=== PATIENT | female | born 1970 | race Two or more races ===

== ENCOUNTER → 2022-11-08 09:49 | Outpatient (BNVA) | payer OTHER, SELFPAY | PROVIDERS: PCP Internal Medicine; Visit Provider Student in an Organized Health Care Education/Training Program | DX: M79.7 Fibromyalgia (principal) | CPT/HCPCS: 99202 ==

== ENCOUNTER 2024-11-08 08:40 | Outpatient (AMB) | payer OTHER, SELFPAY ==
--- NOTE | 2024-11-08 08:41 | MHC.OFFVIS ---
Vital Signs 11/08/24 08:45 Height 5 ft 4 in Weight 199 lb 4.766 oz BMI 34.2 BP 134/80 Blood Pressure Location Lt brachial Position Sitting Pulse 89 Pulse Source Pulse Oximeter Pulse Oximetry (%) 98 Oxygen Delivery Method Room Air Intake Visit Reasons: FMS Intake Note: Patient presents for FMS. Allergies No Known Allergies Allergy (Verified 11/08/24 08:44) Medication List - Last Reconciled 11/08/24 by Eda Wallace MD acetaminophen (Tylenol Extra Strength) 500 mg PO Q6H PRN amlodipine 2.5 mg PO DAILY calcium carbonate-vitamin D3 500 mg-10 mcg (400 unit) (Calcium 500 + D) 1 tab PO DAILY cetirizine (All Day Allergy (cetirizine)) 10 mg PO DAILY PRN cyanocobalamin (vitamin B-12) 1,000 mcg PO DAILY diphenhydramine HCl (Benadryl) 25 mg PO TID PRN docusate sodium 100 mg PO BID ergocalciferol (vitamin D2) 1,250 mcg PO QWEEK fluticasone propionate 50 mcg/actuation (Allergy Relief (fluticasone)) 1 spray intranasal BID folic acid 1 mg PO DAILY galcanezumab-gnlm (Emgality Pen) mg subcut .EVERY 3O DAYS levothyroxine 25 mcg PO DAILY lubiprostone (Amitiza) 24 mcg PO BID metoclopramide HCl (Reglan) 5 mg PO TID montelukast (Singulair) 10 mg PO DAILY naratriptan 1 mg PO ONCE PRN omeprazole 40 mg PO DAILY polyethylene glycol 3350 (Miralax) 17 grams PO DAILY topiramate 100 mg PO BID trazodone 100 mg PO BEDTIME venlafaxine 75 mg PO DAILY venlafaxine ER 150 mg PO DAILY HPI Comments Details: Patient is a 54-year-old female with hypertension, hypothyroidism, depression/anxiety, GERD, KAITLYNN not on CPAP who is here today for follow up of fibromyalgia and bilateral knee OA Interval History: Patient last seen 11/08/[address] Galvez. At that time she was complaining of worsening fatigue, diffuse body pain and reduced energy. Exam at that time was consistent with fibromyalgia and recommendations were to do increased exercise and stretching. Today, Patient continues to complain of whole body pain and worsening fatigue Stopped gabapentin because she did not think it was helping Rheumatologic History: Diagnosed with fibromyalgia 10/2022 based on positive tender points, no active evidence of synovitis Bilateral knee OA: has tried steroid injections, gel injections without much relied Current Rheumatology Medication(s): Gabapentin 300mg bid (no longer taking) PFSH Medical History Acid reflux ADHD Allergic rhinitis Anxiety Constipation Depigmentation of skin Depression Hypothyroidism Iron deficiency anemia Lumbar spondylosis Migraines Myofascial pain syndrome of lumbar spine Surgical History H/O abdominoplasty History of carpal tunnel release Hx of gastric bypass Family History Mother Heart disease Diabetes Arthritis Father Heart disease Social History Household Members: None Alcohol intake: never Patient Tobacco Use Status: Never used Tobacco Current occupational status: unemployed Review of Systems Const Details: Review of Systems Constitutional: Denies fever, chills, weight loss ENT: Denies vision changes, eye pain or eye redness, dental caries, dry mouth GI: Denies nausea, vomiting, diarrhea, abdominal pain, change in BM Pulm: Denies SOB, DORANTES, hemoptysis, wheezing Cards: Denies chest pain, palpitations Skin: Denies Raynaud's, rash, nail changes, photosensitivity, FINGERNAIL TECHNICIAN: Denies headaches, weakness, paresthesias, recurrent falls MSK: as per HPI All other systems reviewed and are unremarkable except noted above Physical Exam Vital Signs: Last Vital Signs Pulse 89 11/08/24 08:45 BP 134/80 11/08/24 08:45 Pulse Ox 98 11/08/24 08:45 Oxygen Delivery Method Room Air 11/08/24 08:45 BMI result Body Mass Index 34.2 Vital signs reviewed Physical Examination CONSTITUITIONAL Patient alert and cooperative. Well appearing and in no apparent painful distress HEENT Conjunctiva and sclera clear. ?Pupils equal round and reactive to light. ?No lymphadenopathy. ? CHEST/RESPIRATORY SYSTEM Normal respiratory effort and able to speak in complete sentences. ?Clear to auscultation bilaterally. ?No crackles, rales, rhonchi, wheezes heard. CARDIAC SYSTEM Regular rate and rhythm. ?S1 and S2 heard no murmurs. ?Radial pulses intact bilaterally MSK Hands: ?Good emergency response coordinator strength bilaterally. No deformities noted. ?No synovitis noted to the MCPs, PIPs or DIPs. ?No tenderness to palpation of these joints. Wrists: ?Full range of motion at the wrists without pain. ?No tenderness to palpation or synovitis noted to the wrists. Elbows: Full range of motion without pain. No tenderness, weakness, swelling, increased warmth or erythema. Shoulders: Full range of motion without pain. No tenderness, weakness, swelling, increased warmth or erythema. Hips: Full range of motion without pain. Hip bursa: No tenderness to palpation Knees: ?Full range of motion. ?No tenderness, swelling, increased warmth or erythema.?No effusion or crepitations Ankles: Full range of motion. ?No tenderness, swelling, increased warmth or erythema.? Feet: ?Negative squeeze test. ?No tenderness to palpation or swelling of the MTPs. Tender points:?No tenderness to palpation of the bilateral trapezius, supraspinatus, greater trochanters, anterior costochondral junctions, bilateral gluteal areas, bilateral suboccipital muscle insertions SKIN Skin intact without rashes. Assessment & Plan Assessment & Plan (1) Fibromyalgia, primary: Code(s): M79.7 - Fibromyalgia Category: Medical Plan: #Fibromyalgia Patient is a 54-year-old female with fibromyalgia presents today for follow up. I discussed the treatment options for fibromyalgia including gabapentin, pregabalin, amitriptyline, muscle relaxants such as Flexeril Patient previously on gabapentin 300 mg twice a day. I discussed possibly increasing the dose of gabapentin since then maximum dose is usually 7512-4126 per day however patient would like to try pregabalin. We will start with pregabalin and see if this is efficacious for her. Plan - Stop gabapentin - Start pregabalin: 75 mg p.o. b.i.d. for 2 weeks then increase to 150 mg p.o. b.i.d. if tolerated - Consider adding amitriptyline and/or Flexeril in the future - Discussed stretches, exercise and good sleep hygiene - Labs today: CBC, CMP, ESR, CRP, RF and CCP - RTC 6 months (2) Bilateral primary osteoarthritis of knee: Code(s): M17.0 - Bilateral primary osteoarthritis of knee Category: Medical Plan: #Bilateral Knee OA Patient with bilateral knee OA has tried gel injections, steroid injections but this have not been helpful. Has not tried topical diclofenac we will prescribe this to apply 4 times a day Plan - Topical diclofenac 4 times a day Plan I spent 30 minutes reviewing the record and labs, taking a history, examining the patient, discussing the treatment plan and documenting in the medical record Orders: Orders Complete Blood Count Auto Diff Today M79.7 - Fibromyalgia C Reactive Protein Today M79.7 - Fibromyalgia Erythrocyte Sedimentation Rate Today M79.7 - Fibromyalgia Rheumatoid Factor Today M79.7 - Fibromyalgia Comprehensive Met. Panel Today M79.7 - Fibromyalgia Cyclic Citrullinated Peptide Today M79.7 - Fibromyalgia Medications: New pregabalin 150 mg (2 x 75 mg) PO BID 180 caps 5RF M79.7 - Fibromyalgia diclofenac sodium 1% (Arthritis Pain (diclofenac)) apply to bilateral knees 4 times a day 4 grams topical QID 100 grams 5RF M17.0 - Bilateral primary osteoarthritis of knee Coding Level of Care Code Est Pt Level 4 (40064) Diagnoses Fibromyalgia, primary M79.7 Bilateral primary osteoarthritis of knee M17.0
[2024-11-08 08:45] VITALS: BP 134/80; PULSE 89; O2SAT 98; BMI 34.2
--- OUTSIDE RECORDS SUMMARY | 2024-11-08 08:53 | XMS_ITS | Encounter Summary ---
Author Organization [facility] Address [address] [place] [address] Care Team Providers Care Systems Applications Programming Lead Name Role Phone Gini Johnson MD Primary Care Provider [phone] Reason for Referral * Rehabilitation - Outpatient (Routine) - Authorized Specialty Diagnoses / Procedures Referred By Allison chávez Referred To Contact Physical Therapy Diagnoses Chronic pain of both shoulders Regan Underwood PA [address] [place] [address] Referral ID Status Reason Start Date Expiration Date Visits Requested Visits Authorized [id number] Authorized Consult and Treat 10/23/2024 10/23/2025 21 21 Reason for Visit * Reason Comments Pain Follow-up Pain Encounter Details Date Type Department Care Team ([facility] st Contact Info) Description 10/23/2024 9:30 AM EST Office Visit Orthopedics - [address] [phone] Regan Underwood PA [address] [place] [phone] Chronic pain of both shoulders (Primary Dx) Social History Tobacco Use Types Packs/Day Years Used Date Smoking Tobacco: Never Smokeless Tobacco: Never Alcohol Use Standard Drinks/Week Comments No 0 (1 standard drink = 0.6 oz pur e alcohol) Sex and Gender Information Value Date Recorded Sex Assigned at Female 07/15/2021 9:13 AM EDT Gender Identity Female 07/15/2021 9:13 AM EDT Sexual Orientation Straight 07/15/2021 9: 13 AM EDT Job Start Date Occupation Industry Not on file Not on file Not on file documented as of this encounter Last Filed Vital Signs Vital Sign Reading Time Taken Comments Blood Pressure - - Pulse - - Temperature - - Respiratory Rate 16 10/23/2024 9:09 AM EST Oxygen Saturation - - Inhaled Oxygen Concentration - - Weight 92.5 kg (204 lb) 10/23/2024 9:09 AM EST Height 162.6 cm (5' 4 ) 10/23/2024 9:09 AM EST Body Mass Index 35.02 10/23/2024 9:09 AM EST documented in this encounter Plan of Treatment Upcoming Encounters Date Type Department Care Team (Late st Contact Info) Description 11/13/2024 11:15 AM EST [facility]ointment [facility] [address] [place] [phone] 11/13/2024 3:00 PM EST Evaluation [facility] [address] [facility] [address] [place] [phone] Sean Cleary, PT [address] [place] [address] 11/20/2024 9:30 AM EST Office Visit Orthopedics [place] [id number] [place] [phone] Regan Underwood PA [address] [place] [address] 11/27/2024 3:30 PM EST Office Visit Orthopedic Surgery [facility] [address] [facility] [address] [place] [phone] Marivel Sandy NP 175 [facility] [address] [place] [address] 12/11/2024 2:00 PM EST Appointment [facility] Endoscopy [address] [place] [phone] Boni HanselDO [address] [phone] 12/26/2024 9:00 AM EDT Appointment [facility] Xray [address] [place] [phone] 02/03/2025 8:30 AM EDT Office Visit Internal Medicine - [place] [address] [phone] Gini Johnson MD [address] [phone] Scheduled Orders Name Type Priority Associated Diagnoses Orde r Schedule XR Shoulder 2+ Views bilat Imaging Routine Chronic pain of both shoulders Ordered: 10/23/2024 Scheduled Referrals Name Type Priority Associated Diagnoses Order Schedule Ambulatory referral to Physical Therapy and Athletic Training Outpatient Referral Routine Chronic pain of both shoulders 1 Occurrences starting 10/23/2024 until 10/23/2025 documented as of this encounter Visit Diagnoses Diagnosis Chronic pain of both shoulders- Primary documented in this encounter Historical Medications * This list may reflect changes made after this encounter. Medication Sig Dispensed Refills Start Date End Date metoclopramide (REGLAN) 5 mg tablet Take 1 tablet (5 mg total) by mouth 3 (three) times a day before meals. 10/08/2024 added in this encounter Care Teams Systems Applications Programming Lead Relationship Specialty Start Date End Date Gini Johnson MD [address] [phone] PCP - General Internal Medicine 02/04/19 documented as of this encounter
--- OUTSIDE RECORDS SUMMARY | 2024-11-08 08:53 | XMS_ITS | Clinical Summary ---
Author Organization Patient Business [facility] Address [address] [place] [address] Care Team Providers Care Assisted Living Administrator Name Role Phone Gini Johnson MD Primary Care Provider [phone] Allergies No known active allergies Medications Medication Sig Dispensed Refills Start Date End Date Status acetaminophen (TYLENOL) 500 mg tablet Take 1 tablet (500 mg total) by mouth every 6 (six) hours if needed for moderate pain or mild pain. 05/02/2024 Active lactulose (CHRONULAC) solution Take 15 mL (10 g total) by mouth 2 (two) times a day if needed. 03/12/2024 Active omeprazole (PriLOSEC) [address] capsule Take 1 Capsule by mouth 2 times daily (before meals). 03/12/2024 Active polyethylene glycol (Miralax) 17 gram/dose oral powder One capful (17g) twice daily as needed for constipation. 03/12/2024 Active topiramate (TOPAMAX) 100 mg tablet Take 1 tablet (100 mg total) by mouth 2 (two) times a day. 02/12/2024 Active busPIRone (BUSPAR) 10 mg tablet Take 1 tablet (10 mg total) by mouth 2 (two) times a day if needed. 11/23/2023 Active amLODIPine (NORVASC) 2.5 mg tablet Take 1 tablet (2.5 mg total) by mouth 1 (one) time each day. 12/19/2023 Active ergocalciferol (VITAMIN D-2) 1,250 mcg (50,000 unit) capsule Take 1 Capsule by mouth once a week. 12/19/2023 Active gabapentin (NEURONTIN) 300 mg capsule Take 1 capsule (300 mg total) by mouth 2 (two) times a day. 12/06/2023 Active sodium hyaluronate, viscosup, 10 mg/mL solution injection Inject 20 mg into the articular space once a week for 21 days. Inject one syringe to each knee once weekly for 3 weeks 05/16/2023 Active traZODone (DESYREL) 100 mg tablet Take 1 tablet (100 mg total) by mouth at bedtime. 12/02/2022 Active galcanezumab-gnlm (Emgality Pen) 120 mg/mL injection pen every 30 days. 06/12/2020 A ctive cetirizine (ZyrTEC) 10 mg tablet TAKE 1 TABLET BY MOUTH EVERY DAY 90 tablet 1 08/20/2024 Active Additional Information Patient not taking.Reported on 10/23/2024 venlafaxine XR (EFFEXOR-XR) 150 mg 24 hr capsule Take 1 capsule (150 mg total) by mouth 1 (one) time each day. With 75 MG for a daily total of 225 MG daily. 11/09/2018 Active venlafaxine XR (EFFEXOR-XR) 75 mg 24 hr capsule Take 1 capsule (75 mg total) by mouth 1 (one) time each day. With 150 MG for a daily total of 225 MG daily. Active ZOLMitriptan (ZOMIG) 2.5 mg tablet Take 1 tablet (2.5 mg total) by mouth 1 (one) time each day if needed for migraine. Active levothyroxine (SYNTHROID, LEVOTHROID) 25 mcg tablet Take 1 tablet (25 mcg total) by mouth 1 (one) time each day. 90 tablet 3 08/27/2024 Active cyanocobalamin (Vitamin B-12) 1,000 mcg tablet Take 1 tablet (1,000 mcg total) by mouth 1 (one) time each day. 90 tablet 3 09/16/2024 Active metoclopramide (REGLAN) 5 mg tablet Take 1 tablet (5 mg total) by mouth 3 (three) times a day before meals. 10/08/2024 Active Active Problems Problem Noted Date Diagnosed Date Anxiety 07/11/2024 Class 2 obesity 12/29/2023 Carpal tunnel syndrome of right wrist 08/23/2023 Insomnia 01/31/2023 Primary hypertension 01/31/2023 Lower abdominal pain 06/10/2021 Overview (07/11/2024): Last Assessment & Plan: Discussed common causes of abdominal discomfort. Ultrasound from 04/2020 reviewed and uterus normal size with two small 1.5cm fibroids. Discussed discomfort is more likely related to constipation. Recommend f/u with GI, which the patient already has scheduled. Lumbar spondylosis 09/01/2020 ADHD (attention deficit hyperactivity disorder) 07/06/2018 Anemia, iron deficiency 03/15/2018 Acid reflux 03/13/2018 Constipation 03/13/2018 Depression 02/07/2018 Myofascial pain syndrome of lumbar spine 017 Migraine, unspecified, not i ntractable, without status migrainosus 06/23/2017 Allergic rhinitis 03/22/2017 Hypothyroidism 12/30/2016 Depigmentation of skin 11/24/2016 Encounters Date Type Department Care Team Description 10/23/2024 9:30 AM EST Office Visit Orthopedics - [address] [phone] Regan Underwood PA Chronic pain of both shoulders (Primary Dx) 09/09/2024 Telephone Gastroenterology - [place] 175 [facility] [address] [phone] Christa Roblero PA 09/09/2024 Telephone Gastroenterology [facility] 175 [place] [address] [phone] Christa Roblero PA 08/27/2024 2:45 PM EST Office Visit Endocrinology - [address] [phone] Penny Mata PA Hypothyroidism, unspecified type (Primary Dx) from Last 3 Months Immunizations Name Administration Dates Next Due Influenza trivalent, with pr eservative (Fluzone; Afluria) 6mo and older 06/02/2020 Influenza, Unspecified 07/25/2022 Pfizer SARS-CoV-2 COVID-19, mRNA, LNP-S, preservative free 02/11/2022 Tdap Tetanus diptheria acell ular pertussis (Boostrix; Adacel) 7yo and older 01/22/2016 Surgical History Surgery Date Site/Laterality Comments GASTRIC BYPASS 2004 PROCEDURE: [place] GASTRIC RSTCV W/BYP W/SM INT RCNSTJ LIMIT ABSRPJ BELT ABDOMINOPLASTY PROCEDURE: HISTORICAL TUMMY TUCK CARPAL TUNNEL RELEASE 2002 Left PROCEDURE: [place] NEUROPLASTY &/TRANSPOS MEDIAN NRV CARPAL TUNNE Medical History Medical History Date Comments Anxiety DX:Anxiety Acid reflux 03/13/2018 DX:Acid reflux ADHD (attention deficit hype ractivity disorder) 07/06/2018 DX:ADHD (attention deficit hyperactivity disorder) Allergic rhinitis 03/22/2017 DX:Allergic rh initis Anemia, iron deficiency 03/15/2018 DX:Anemi a, iron deficiency Constipation 03/13/2018 DX:Constipation Depigmentation of skin 11/24/2016 DX:Depigm entation of skin Depression 02/07/2018 DX:Depression Hypothyroidism 12/30/2016 DX:Hypothyroidis m Lower back pain 07/11/2017 DX:Lower back pa in Migraine, unspecified, not intractable, without status migrainosus 06/23/2017 DX:Migraine, unspecified, no t intractable, without status migrainosus S/P bariatric surgery 06/23/2017 DX:S/P bar iatric surgery Asthma DX:Asthma Essential hypertension DX:Essent ial hypertension Family History Medical History Relation Name Comments Other: heart problems Brother Arthritis Mother Other: congestive heart failure Mother Hyperlipidemia Sister 1 Depression Sister 2 Breast cancer Neg Hx Colon cancer Neg Hx Relation Name Status Comments Brother Father (Age 56) Mother Sister 1 Sister 2 Social History Tobacco Use Types Packs/Day Years [...] file Not on file Not on file Obstetrics History Last Filed Vital Signs Vital Sign Reading Time Taken Comments Blood Pressure 102/72 08/27/2024 2:53 PM EST C Pulse 88 08/27/2024 2:53 PM EST Temperature 36.5 ??C (97.7 ??F) 08/27/2024 2:53 PM ES T Respiratory Rate 16 10/23/2024 9:09 AM EST Oxygen Saturation 99% 08/27/2024 2:53 PM EST Inhaled Oxygen Concentration - - Weight 92.5 kg (204 lb) 10/23/2024 9:09 AM EST Height 162.6 cm (5' 4 ) 10/23/2024 9:09 AM EST Body Mass Index 35.02 10/23/2024 9:09 AM EST Plan of Treatment Upcoming Encounters Date Type Department Care Team (Late st Contact Info) Description 11/13/2024 11:15 AM EST Appointment [facility] [address] [place] [phone] 11/13/2024 3:00 PM EST Evaluation [facility] Rehabilitation [facility] [address] [phone] Sean Cleary, PT 175 [place] [address] 11/20/2024 9:30 AM EST Office Visit Orthopedics [address] [phone] Regan Underwood PA [address] [place] [address] 11/27/2024 3:30 PM EST Office Visit Orthopedic Surgery - [place] [address] [phone] Marivel Sandy NP [address] [address] 12/11/2024 2:00 PM EST Appointment [facility] Endoscopy [address] [place] [phone] Hansel Plata DO [address] [address] 12/26/2024 9:00 AM EDT Appointment [facility] Xray [address] [place] [address] 02/03/2025 8:30 AM EDT Office Visit Internal Medicine - [place] [address] [phone] Gini Johnson MD [address] [phone] Health Maintenance Due Date Last Done Comments Hepatitis B Vaccines (1 of 3 - 19+ 3-dose series) 1991 Social Influencers of Health Screening 04/22/2020 Breast Cancer Screening 07/16/2020 07/16/2018 Zoster Vaccines (1 of 2) 2022 Cervical Cancer Screening: HPV 11/13/2024 11/13/2019 Depression Screening 05/28/2025 05/28/2024 Hypertension/CHF/CAD Annual BMP Blood Test 05/28/2025 05/28/2024, 05/28/2024 DTaP,Tdap,and Td Vaccines (2 - Td or Tdap) 01/21/2026 01/22/2016 Cholesterol Screening (Lipid Panel) 05/15/2028 05/15/2023 Colorectal Cancer Screening: Colonoscopy 03/05/2029 03/05/2019 HIV Screening Completed 11/13/2019 Hepatitis C Screening Completed 11/13/2019 COVID-19 Vaccine Completed 07/05/2024, , 02/11/2022, Additional history exists Influenza Vaccine Completed 07/05/2024, , 07/25/2022, Additional history exists HIB Vaccines Aged Out No longer eligi ble based on patient's age to complete this topic HPV Vaccines Aged Out No longer eligi ble based on patient's age to complete this topic Hepatitis A Vaccines Aged Out No long er eligible based on patient's age to complete this topic IPV Vaccines Aged Out No longer eligi ble based on patient's age to complete this topic MMR Vaccines Aged Out No longer eligi ble based on patient's age to complete this topic Meningococcal ACWY Vaccine Aged Out N o longer eligible based on patient's age to complete this topic Pneumococcal Vaccine: Pediatrics (0 to 5 Years) and At-Risk Patients (6 to 64 Years) Aged Out No longer eligible based on patient's age to complete this topic RSV Immunization Patients Under 20 months Aged Out No longer eligible based on patient's age to complete this topic Varicella Vaccines Aged Out No longer eligible based on patient's age to complete this topic Procedures Procedure Name Priority Date/Time Associated Diagnosis Comments THYROID STIMULATING HORMONE WITH REFLEX TO FREE T4 AND FREE T3 Routine 09/19/2024 9:26 AM EST Hypothyroidism, unspecified type EXTERNAL COLOGUARD (FIT-DNA) REPORT 08/28/2024 DEPRESSION SCREENING Routine 05/28/2024 ANNUAL BMP BLOOD TEST Routine 05/28/2024 LIPID PANEL Routine 05/15/2023 HPV Routine 11/13/2019 HEPATITIS C SCREENING Routine 11/13/2019 HIV SCREENING Routine 11/13/2019 COLONOSCOPY Routine 03/05/2019 ALLEN SCREENING DIGITAL Routine 07/16/2018 10:48 AM EDT Encounter for screening mammogram for malignant neoplasm of breast from Last 3 Months or Most Recently Relevant to Health Maintenance Results * Thyroid stimulating hormone with reflex to free t4 and free t3 (09/19/2024 9:26 AM EST) TSH 1.88 0.40 - 4.00 mcIU/mL LAB CHEMISTRY METHOD 09/19/2024 10:34 AM EST [facility] Blood Venous blood specimen / Unknown Venipuncture / Unknown 09/19/2024 9:26 AM EST 09/19/2024 9:26 AM EST Penny RUELAS LAB BLOOD ORDERABLE S [facility] [address] [place] [address], * External Cologuard (FIT-DNA) Report (08/28/2024) Provider Onbase LAB BODY FLUIDS AND STOOLS ORDERABLES * Annual BMP Blood Test (05/28/2024) [facility] Annual BMP Blood Test Abstracted Historical Provider MD PENALOZA [facility] Depression Screening (05/28/2024) [facility] Depression Screening Abstracted Historical Provider MD PENALOZA [employer] E (ABNORMAL) Lipid panel (05/15/2023) [facility] LDL/HDL Ratio 3 0 - 4 Triglycerides 91 0 - 150 mg/dL Cholesterol 195 0 - 200 mg/dL HDL 61 40 mg/dL LDL Cholesterol 116(A) 0 - 100 mg/dL Blood Venous blood specimen / Unknown Historical Provider LAB BLOOD ORDERAB LES * Cervical Cancer Screening: HPV (11/13/2019) [facility] Cervical Cancer Screening: HPV Abstracted, Negative Historical Provider MD PENALOZA [facility] * HIV Screening (11/13/2019) [facility] HIV Screening Abstracted [facility] Provider MD TREMAINE BAILEY * Hepatitis C Screening (11/13/2019) [facility] Hepatitis C Screening Abstracted Historical Provider MD TREMAINE BAILEY E * Colonoscopy (03/05/2019) Colonoscopy Abstracted, Unknown Anatomical Region Laterality Modality Other Historical Provider MD TREMAINE BAILEY E * [facility] SCREENING DIGITAL (07/16/2018 10:48 AM EDT) Anatomical Region Laterality Modality Mammography 07/12/2018 10:5 1 AM EDT Narrative 07/16/2018 10:48 AM EDT [facility] Diagnostic Imaging Department [address] [place] [address] Patient: ??PATSY,ALLIE ?/Age/Sex: 1970 - 48 - F Unit#: ??[id number] ? Location/Status: ??SPDIMAM/REG CLI ? Mnemonic/Ordering Site: ??DIGSC/SPMAM Ordering Physician: ??MADINA SOLORIO MD [facility] Screening Digital - 07/14/18 7654 INDICATION: Screening. COMPARISON: Baseline mammogram TECHNIQUE: Routine views of both breasts were obtained using full-field direct digital mammography. Bilateral tomosynthesis was performed in MLO projection. Computer Aided Detection was utilized. BREAST PARENCHYMAL COMPOSITION: The breast parenchyma is composed of scattered fibroglandular densities. (Category b density ) . FINDINGS: ??There is no suspicious finding within either breast. Benign- appearing bilateral axillary lymph nodes. Few scattered benign-appearing microcalcifications in both breasts. IMPRESSION: 1. No mammographic evidence of malignancy. 2. Annual screening mammography is recommended . OVERALL FINAL ASSESSMENT: BI-RADS Assessment Category 2: Benign. PQRI CPT II 3342 F A negative mammogram in the presence of clinically suspicious palpable abnormality does not preclude the possibility of malignancy or alter the indications for biopsy. Note: Patient information entered into a reminder system with a target due date for the next mammogram: ??CPT II 7025F G0202/21213 [id number] Dictating Physician: ??SNEHAL PEREZ MD Electronically Signed by: ??SNEHAL PEREZ MD Dic Date/Time: ??07/16/181046 Sign date/Time: ??07/16/181047 Procedure Note Snehal Perez MD - 09/27/2022 [facility] Diagnostic Imaging Department [address] [place] [address] Patient: ALLIE MATA /Age/Sex: 1970 - 48 - F Unit#: [id number] Location/Status: [facility] Mnemonic/Ordering Site: [facility] Ordering Physician: MADINA SOLORIO MD [facility] Screening Digital - 07/14/18954 INDICATION: Screening. COMPARISON: Baseline mammogram TECHNIQUE: Routine views of both breasts were obtained using full-fielddirect digital mammography. Bilateral tomosynthesis was performed in MLOprojection. Computer Aided Detection was utilized. BREAST PARENCHYMAL COMPOSITION: The breast parenchyma is composed ofscattered fibroglandular densities. (Category b density ) . FINDINGS: There is no suspicious finding within either breast. Benign- appearing bilateral axillary lymph nodes. Few scattered benign-appearing microcalcifications in both breasts. IMPRESSION: 1. No mammographic evidence of malignancy. 2. Annual screening mammography is recommended . OVERALL FINAL ASSESSMENT: BI-RADS Assessment Category 2: Benign. PQRI CPT II 3342 F A negative mammogram in the presence of clinically suspicious palpable abnormality does not preclude the possibility of malignancy or alter the indications for biopsy. Note: Patient information entered into a reminder system with a target duedate for the next mammogram: CPT II 7025F G0202/69053 +[id number] Dictating Physician: SNEHAL PEREZ MD Electronically Signed by: SNEHAL PEREZ MD Dic Date/Time: 07/16/181046 Sign date/Time: 07/16/18 104 Madina Solorio MD IMG BI PROCEDURES from Last 3 Months or Most Recently Relevant to Health Maintenance Care Teams Assisted Living Administrator Relationship Specialty Start Date End Date Gini Johnson MD 175 [facility] 200 [place] [phone] PCP - General Internal Medicine 02/04/19
== END 2024-11-08 09:16 | disposition home or self-care (01) ==
PROVIDERS: PCP Internal Medicine; Visit Provider Student in an Organized Health Care Education/Training Program
DX: M79.7 Fibromyalgia (principal); M17.0 Bilateral primary osteoarthritis of knee
CPT/HCPCS: 99214

== ENCOUNTER → 2024-11-08 08:40 | Outpatient (BNVA) | payer OTHER, SELFPAY | PROVIDERS: PCP Internal Medicine; Visit Provider Student in an Organized Health Care Education/Training Program | DX: M17.0 Bilateral primary osteoarthritis of knee (principal); M79.7 Fibromyalgia | CPT/HCPCS: 99212 ==

== ENCOUNTER 2024-11-08 09:20 | Outpatient (REF) | payer OTHER, SELFPAY ==
--- OUTSIDE RECORDS SUMMARY | 2024-11-08 09:49 | XMS_ITS | Encounter Summary ---
Author Organization [employer] Address [address] [place] [address] Care Team Providers Care Geomorphology Teacher Name Role Phone Gini Johnson MD Primary Care Provider [phone] Reason for Referral * Rehabilitation - Outpatient (Routine) - Authorized Specialty Diagnoses / Procedures Referred By Allison chávez Referred To Contact Physical Therapy Diagnoses Chronic pain of both shoulders Regan Underwood PA [address] [place] [address] Referral ID Status Reason Start Date Expiration Date Visits Requested Visits Authorized [id number] Authorized Consult and Treat 10/23/2024 10/23/2025 21 21 Reason for Visit * Reason Comments Pain Follow-up Pain Encounter Details Date Type Department Care Team ([facility] st Contact Info) Description 10/23/2024 9:30 AM EST Office Visit Orthopedics - [address] [phone] Regan Underwood PA [address] [place] [phone] Chronic pain of both shoulders (Primary Dx) [...] AM EST Appointment [facility] [address] [place] [phone] 11/13/2024 3:00 PM EST Evaluation [facility] 175 [facility] [address] [place] [phone] Sean Cleary, PT 175 [place] [address] 11/20/2024 9:30 AM EST Office Visit Orthopedics [place] [phone] [place] [phone] Regan Underwood PA [address] [place] [address] 11/27/2024 3:30 PM EST Office Visit Orthopedic Surgery [facility] 250 175 [facility] [address] [place] [phone] Marivel Sandy NP 175 [facility] 250 [place] [address] 12/11/2024 2:00 PM EST Appointment [facility] Endoscopy [address] [place] [phone] Boni HanselDO [address] [phone] 12/26/2024 9:00 AM EDT Appointment [facility] Xray [address] [place] [phone] 02/03/2025 8:30 AM EDT Office Visit Internal Medicine - [place] [address] [phone] Gini Johnson MD [address] [phone] Scheduled Orders Name Type Priority [...] 10/08/2024 added in this encounter Care Teams Geomorphology Teacher Relationship Specialty Start Date End Date Gini Johnson MD [address] [phone] PCP - General Internal Medicine 02/04/19 documented as of this encounter
--- OUTSIDE RECORDS SUMMARY | 2024-11-08 09:50 | XMS_ITS | Clinical Summary ---
Author Organization Patient Business [facility] Address [address] [place] [address] Care Team Providers Care Print Traffic Manager Name Role Phone Gini Johnson MD Primary Care Provider [phone] Allergies No known active allergies Medications Medication [...] 9:30 AM EST Office Visit Orthopedics - [address] [phone] Regan Underwood PA Chronic pain of both shoulders (Primary Dx) 09/09/2024 Telephone Gastroenterology - [place] 175 [facility] [address] [phone] Christa Roblero PA 09/09/2024 Telephone Gastroenterology [facility] [address] [place] [address] [phone] Christa Roblero PA 08/27/2024 2:45 PM EST Office Visit Endocrinology - [address] [phone] Penny Mata PA Hypothyroidism, unspecified type (Primary Dx) from Last 3 Months Immunizations Name Administration Dates Next Due Influenza trivalent, with pr eservative (Fluzone; Afluria) 6mo and older 06/02/2020 Influenza, Unspecified 07/25/2022 Pfizer SARS-CoV-2 COVID-19, mRNA, LNP-S, preservative free 02/11/2022 Tdap Tetanus diptheria acell ular pertussis (Boostrix; Adacel) 7yo and older 01/22/2016 Surgical History Surgery Date Site/Laterality Comments GASTRIC BYPASS 2004 PROCEDURE: SD GASTRIC RSTCV W/BYP W/SM INT RCNSTJ LIMIT ABSRPJ BELT ABDOMINOPLASTY PROCEDURE: HISTORICAL TUMMY TUCK CARPAL TUNNEL RELEASE 2002 Left PROCEDURE: SD NEUROPLASTY &/TRANSPOS MEDIAN NRV CARPAL TUNNE Medical [...] AM EST Appointment [facility] [address] [place] [phone] 11/13/2024 3:[address] [facility] [address] [phone] Sean Cleary, PT 175 [place] [address] 11/20/2024 9:30 AM EST Office Visit Orthopedics [address] [phone] Regan Underwood PA [address] [place] [address] 11/27/2024 3:30 PM EST Office Visit Orthopedic Surgery - [place] [phone] [phone] Marivel Sandy NP [address] [address] 12/11/2024 2:[address] [facility] Endoscopy [address] [place] [phone] Hansel Plata DO [address] [address] 12/26/2024 9:[address] [facility] Xray [address] [place] [address] 02/03/2025 8:30 AM EDT Office Visit Internal Medicine - [place] [address] [phone] Gini Johnson MD [address] [phone] Health Maintenance Due Date Last [...] LAB CHEMISTRY METHOD 09/19/2024 10:34 AM EST [facility] Blood Venous blood specimen / Unknown Venipuncture / Unknown 09/19/2024 9:26 AM EST 09/19/2024 9:26 AM EST Penny RUELAS LAB BLOOD ORDERABLE S [facility] [address] [place] [address], * External Cologuard (FIT-DNA) Report (08/28/2024) Provider Onbase LAB BODY FLUIDS AND STOOLS ORDERABLES * Annual BMP Blood Test (05/28/2024) [facility] Annual BMP Blood Test Abstracted Historical Provider MD [facility]NALOAZ [employer] [facility] Depression Screening (05/28/2024) [facility] Depression Screening Abstracted Historical Provider MD PENALOZA [employer] E (ABNORMAL) Lipid panel (05/15/2023) [facility] LDL/HDL Ratio 3 0 - 4 Triglycerides 91 0 - 150 mg/dL Cholesterol 195 0 - 200 mg/dL HDL 61 40 mg/dL LDL Cholesterol 116(A) 0 - 100 mg/dL Blood Venous blood specimen / Unknown Historical Provider LAB BLOOD ORDERAB LES * Cervical Cancer Screening: HPV (11/13/2019) [facility] Cervical Cancer Screening: HPV Abstracted, Negative Historical Provider [facility] * HIV Screening (11/13/2019) [facility] HIV Screening Abstracted [facility] Provider MD TREMAINE BAILEY * Hepatitis C Screening (11/13/2019) [facility] Hepatitis C Screening Abstracted Historical Provider MD TREMAINE BAILEY E * Colonoscopy (03/05/2019) Colonoscopy Abstracted, Unknown Anatomical Region Laterality Modality Other Historical Provider MD TREMAINE BAILEY E * [facility] SCREENING DIGITAL (07/16/2018 10:48 AM EDT) Anatomical Region Laterality Modality Mammography 07/12/2018 10:5 1 AM EDT Narrative 07/16/2018 10:48 AM EDT [facility] Diagnostic Imaging Department [address] [place] [phone] Patient: ??PATSY,ALLIE ?/Age/Sex: 1970 - 48 - F Unit#: ??[id number] ? Location/Status: ??SPDIMAM/REG CLI ? Mnemonic/Ordering Site: ??DIGSC/SPMAM Ordering Physician: ??MADINA SOLORIO MD [facility] Screening Digital - 07/14/18 2769 INDICATION: Screening. COMPARISON: Baseline mammogram TECHNIQUE: Routine [...] for the next mammogram: ??CPT II 7025F [id number] Dictating Physician: ??SNEHAL PEREZ MD Electronically Signed by: ??SNEHAL PEREZ MD Dic Date/Time: ??07/16/181046 Sign date/Time: ??07/16/181047 Procedure Note Snehal Perez MD - 09/27/2022 [facility] Diagnostic Imaging Department [address] [place] [address] Patient: ALLIE MATA /Age/Sex: 1970 - 48 - F Unit#: [id number] Location/Status: [facility] Mnemonic/Ordering Site: [facility] Ordering Physician: MADINA SOLORIO MD [place] Screening [...] for the next mammogram: CPT II 7025F [id number] +[id number] Dictating Physician: SNEHAL PEREZ MD Electronically Signed by: SNEHAL PEREZ MD Dic Date/Time: 07/16/181046 Sign date/Time: 07/16/18 104 Madina Solorio MD IMG BI PROCEDURES from Last 3 Months or Most Recently Relevant to Health Maintenance Care Teams Print Traffic Manager Relationship Specialty Start Date End Date Gini Johnson MD 175 [facility] [address] [place] [phone] PCP - General Internal Medicine 02/04/19
[2024-11-08 10:41] LABS: MANUAL DIFF FLAG NO
[2024-11-08 10:48] LABS: Basophils Absolute Auto 0.1 X10*3/uL (0.0-0.2); Basophils Percent Auto 0.8 % (0-2); Eosinophils Absolute Auto 0.1 X10*3/uL (0.0-0.4); Eosinophils Percent Auto 0.9 % (0-4); Hematocrit 45.8 % (37.0-47.0); Hemoglobin 15.1 g/dl (12.0-16.0); Imm Gran Abs Auto 0.02 X10*3/uL (0.00-0.03); Imm Gran Pct Auto 0.3 % (0.0-0.4); Lymphocytes Absolute Auto 1.6 X10*3/uL (1.2-4.9); Lymphocytes Percent Auto 24.6 % (20-40); Mean Corpuscular Hemoglobin 29.5 pg (27.0-33.0); Mean Corpuscular Volume 89.6 fL (80.0-98.0); Mean Platelet Volume 10.2 fL (9.4-12.3); Monocytes Absolute Auto 0.5 X10*3/uL (0.1-1.2); Monocytes Percent Auto 7.2 % (2-11); Neutrophils Absolute Auto 4.3 x10*3/uL (2.0-8.3); Neutrophils Percent Auto 66.2 % (45-73); Platelet Count 311 X10*3/uL (160-400); Red Blood Count 5.11 X10*6/uL (4.20-5.50); Red Cell Distribution Width 12.7 % (11.0-16.0); White Blood Count 6.4 X10*3/uL (4.8-10.8)
[2024-11-08 11:17] LABS: Rheumatoid Factor < 13.0 IU/mL (<15.0)
[2024-11-08 11:27] LABS: Erythrocyte Sedimentation Rate 5 MM/HR (0-20)
[2024-11-08 11:28] LABS: Alanine Aminotransferase 35 U/L (0-31); Alkaline Phosphatase 113 U/L (39-117); Anion Gap 8 (12-20); Aspartate Amino Transferase 26 U/L (5-31); Bilirubin Total 0.3 mg/dL (0.0-1.0); Blood Urea Nitrogen 11 mg/dL (9-16); C Reactive Protein < 0.04 mg/dL (< or = 0.50); Calcium 9.6 mg/dL (8.4-10.2); Carbon Dioxide 23 mmol/L (22-29); Chloride 114 mmol/L (96-108); Estimated Glomerular Filt Rate > 60; Glucose Random 88 mg/dL (60-115); Potassium 4.1 mmol/L (3.3-5.1); Sodium 141 mmol/L (135-145); Total Protein 7.3 g/dL (6.5-8.0)
[2024-11-11 22:08] LABS: Cyclic Citrullinated Peptide <16 UNITS
== END 2024-11-08 09:21 | disposition home or self-care (01) ==
LOC: HO.10HDL 09:20
PROVIDERS: Visit Provider Student in an Organized Health Care Education/Training Program
DX: M79.7 Fibromyalgia (principal)
CPT/HCPCS: 36415; 80053; 85025; 85652; 86140; 86200; 86431